=== PATIENT | male | born 1955 | race Asian ===

== ENCOUNTER 2017-01-27 14:13 | Emergency (ER) | payer OTHER ==
[~2017-01-27] VITALS: Ht 167.6 cm; Wt 90.5 kg
[~2017-01-27 14:13] MED LIST: AMLO-511 PO; ASPI81 PO; ATOR40TA28 PO; GLYB5 PO; LORA10TA7 PO; METF500T4 PO; PIOG45TA PO; VALS160T2 PO
[2017-01-27 15:57] LABS: GLUCOSE,POINT OF CARE 101 MG/DL (70-110)
[2017-01-27 16:00] VITALS: BP 130/80
[2017-01-27] MEDS ORDERED: HYDROCODONE/ACETAMINOPHEN 5-325 MG TABLET PO ONE (16:00)
== END 2017-01-27 17:34 | disposition home or self-care (01) ==
LOC: EMS 14:15
DX: S40.012A Contusion of left shoulder, initial encounter (principal); R07.9 Chest pain, unspecified; E11.9 Type 2 diabetes mellitus without complications; I10 Essential (primary) hypertension; E78.00 Pure hypercholesterolemia, unspecified; Z87.891 Personal history of nicotine dependence; V43.52XA Car driver injured in collision with other type car in traffic accident, initial encounter; Y93.89 Activity, other specified; Y92.89 Other specified places as the place of occurrence of the external cause; Y99.8 Other external cause status
CPT/HCPCS: 71020; 82962; 99284